=== PATIENT | female | born 1965 | race Caucasian/White ===

== ENCOUNTER → 2021-07-19 13:58 | Outpatient (BNVA) | payer SELFPAY | PROVIDERS: Visit Provider Nurse Practitioner Family | DX: I10 Essential (primary) hypertension (principal); R06.2 Wheezing; R06.02 Shortness of breath | CPT/HCPCS: 71046; 80053; 80061; 84443; 85025 ==

== ENCOUNTER → 2022-03-20 11:19 | Outpatient (BNVA) | payer OTHER, SELFPAY | PROVIDERS: Visit Provider Nurse Practitioner Family | DX: R05.9 Cough, unspecified (principal); R06.2 Wheezing; R06.02 Shortness of breath | CPT/HCPCS: 87400 ==